=== PATIENT | male | born 2000 | race Caucasian/White ===

== ENCOUNTER 2018-02-08 20:27 | Inpatient (IN) | payer MEDICARE, MEDICAID ==
--- NOTE | 2018-02-08 22:32 | ED ---
Psych HPI - General Source: patient, family, RN notes reviewed, old records reviewed Mode of arrival: ambulatory <Evelin Bowers - Last Filed: 02/08/18 23:44> <Maximus Hunter - Last Filed: 02/12/18 08:21> - General Chief Complaint: Psychiatric Symptoms Stated Complaint: Mental Health Eval Time Seen by Provider: 02/08/18 21:21 - History of Present Illness Initial Comments: This is a 17-year-old male presents emergency department with mother and sister chief complaint of increased violent behavior. He was on clozaril for schizophrenia but has been off the medication for one month. Patient's mother reports that he has been acting out hearing voices and hitting himself because he feels like demons are on him. He states that he has multiple black figures to follow him. He only talked to his sister. Patient was brought in because he started to punch himself today. Patient has a long history of psychiatric illness. He has been on clozaril for a long time but was discussed continued abruptly after he missed some of his appointments with a psychiatrist Dr. Stewart. Patient will not relate any history himself. He will not talk to me. All history is obtained by the mother and sister. (Evelin Bowers) - Related Data Home Medications Medication Instructions Recorded Confirmed ALPRAZolam [Xanax] 1 mg PO Q4H PRN 02/08/18 02/08/18 QUEtiapine [SEROquel] 25 mg PO BID 02/08/18 02/08/18 Sertraline [Zoloft] 50 mg PO HS 02/08/18 02/08/18 Allergies Allergy/AdvReac Type Severity Reaction Status Date / Time No Known Allergies Allergy Verified 02/08/18 21:13 Review of Systems ROS Other: All systems not noted in ROS Statement are negative. <Evelin Bowers - Last Filed: 02/08/18 23:44> ROS Other: All systems not noted in ROS Statement are negative. <Maximus Hunter - Last Filed: 02/12/18 08:21> ROS Statement: Those systems with pertinent positive or pertinent negative responses have been documented in the HPI. Past Medical History Additional Past Medical History / Comment(s): skull fx from fall at age 1 History of Any Multi-Drug Resistant Organisms: None Reported Past Surgical History: No Surgical Hx Reported Past Psychological History: Schizoaffective Disorder, Schizophrenia Smoking Status: Current every day smoker Past Alcohol Use History: None Reported Past Drug Use History: None Reported <Evelin Bowers - Last Filed: 02/08/18 23:44> General Exam Limitations: no limitations General appearance: alert, in no apparent distress Head exam: Present: atraumatic, normocephalic, normal inspection Eye exam: Present: normal appearance, PERRL, EOMI. Absent: scleral icterus, conjunctival injection, periorbital swelling ENT exam: Present: normal exam, mucous membranes moist Neck exam: Present: normal inspection. Absent: tenderness, meningismus, lymphadenopathy Respiratory exam: Present: normal lung sounds bilaterally. Absent: respiratory distress, wheezes, rales, rhonchi, stridor Cardiovascular Exam: Present: regular rate, normal rhythm, normal heart sounds. Absent: systolic murmur, diastolic murmur, rubs, gallop, clicks GI/Abdominal exam: Present: soft, normal bowel sounds. Absent: distended, tenderness, guarding, rebound, rigid Extremities exam: Present: normal inspection, full ROM, normal capillary refill. Absent: tenderness, pedal edema, joint swelling, calf tenderness Back exam: Present: normal inspection Neurological exam: Present: alert, oriented X3, CN II-XII intact Psychiatric exam: Present: flat affect (Patient will not talk to me.). Absent: normal affect, normal mood Skin exam: Present: warm, dry, intact, normal color. Absent: rash <Evelin Bowers - Last Filed: 02/08/18 23:44> <Maximus Hunter - Last Filed: 02/12/18 08:21> - General Exam Comments Initial Comments: This is a 17-year-old male. No distress. (Evelin Bowers) Vital Signs 02/08/18 02/08/18 20:49 22:53 Temperature 97.3 F L Pulse Rate 112 H 97 Respiratory 20 18 Rate Blood Pressure 145/65 144/93 O2 Sat by Pulse 99 97 Oximetry Medical Decision Making <Evelin Bowers - Last Filed: 02/08/18 23:44> - Lab Data Result diagrams: 02/10/18 08:29 02/10/18 08:29 <Maximus Hunter - Last Filed: 02/12/18 08:21> - Medical Decision Making Patient is 17-year-old male who will not speak to me brought in by parents for acting out and hitting himself. He is schizophrenia. Patient has not been taking his medications per month that they really weren't abruptly discontinued. Patient has been seen hearing demons. All history is related from his sister. He will not talk to me. Flat affect. Patient was evaluated by EPS. Also note that the family is very concerned with having him receive an MRI of his brain to check his frontal lobe. Discusses could be further evaluated and after admission. Clinical certification was filled out by Dr. Castillo. Patient will be cleared medically and is going to be admitted at this time. ( Evelin Bowers) I saw this patient in conjunction with the physician senior it assistant. I performed independent history and physical exam. Agree with case management. (Maximus Hunter) Disposition Time of Disposition: 23:45 <Evelin Bowers - Last Filed: 02/08/18 23:44> <Maximus Hunter - Last Filed: 02/12/18 08:21> Clinical Impression: Schizophrenia Disposition: ADMITTED IP TO THIS [facility] Condition: Stable
[2018-02-09] MEDS ORDERED: ZIPRASIDONE 20 MG VIAL IM STA (00:16)
[2018-02-09] MEDS ORDERED: MAGNESIUM HYDROXIDE 2,400 MG/10 ML CUP PO PRN (00:33)
[2018-02-09] MEDS ORDERED: ACETAMINOPHEN TAB 325 MG TAB PO PRN (00:33)
[2018-02-09] MEDS ORDERED: ZIPRASIDONE 20 MG VIAL IM PRN (00:33)
[2018-02-09] MEDS ORDERED: MAG HYDROX/AL HYDROX/SIMETH 30 ML CUP PO PRN (00:33)
[2018-02-09 00:57] LABS: Appearance,Urine Cloudy (Clear); Bilirubin,Urine Negative (Negative); Blood,Urine Negative (Negative); Color,Urine Yellow; Glucose,Urine (UA) Negative (Negative); Ketones,Urine 1+ (Negative); Leukocyte Esterase,Urine Negative (Negative); Mucus,Urine Many /hpf; Nitrite,Urine Negative (Negative); PH, Urine 5.5 (5.0-8.0); Protein,Urine 1+ (Negative); RBC,Urine 4 /hpf (0-5); Specific Gravity,Urine 1.025 (1.001-1.035); Sperm,Urine Rare /hpf; WBC,Urine 3 /hpf (0-5)
[2018-02-09 01:07] LABS: Amphetamine Screen,Urine Not Detected (NotDetected); Benzodiazepines Screen,Urine Detected (NotDetected); Cocaine Screen,Urine Not Detected (NotDetected); Opiate Screen,Urine Not Detected (NotDetected); Phencyclidine Screen,Urine Not Detected (NotDetected)
[2018-02-09 01:08] LABS: Barbiturate Screen,Urine Not Detected (NotDetected); Methadone Screen, Urine Not Detected (NotDetected); Oxycodone Screen, Urine Not Detected (NotDetected); Tricyclic Antidepressant,Urine Detected (NotDetected); Urn Cannabinoid Scrn Not Detected (NotDetected)
--- NOTE | 2018-02-09 09:11 | P.HP ---
Psychiatric H&P - . H&P Date: 02/09/18 History & Physical: Allergies Allergy/AdvReac Type Severity Reaction Status Date / Time No Known Allergies Allergy Verified 02/08/18 21:13 Vital Signs Temp 98.1 F 02/09/18 03:48 Pulse 91 02/09/18 03:48 Resp 18 02/09/18 03:48 BP 130/66 02/09/18 03:48 Pulse Ox 97 02/08/18 22:53 Intake & Output 02/08/18 02/09/18 02/09/18 18:59 06:59 18:59 Weight 124.284 kg Laboratory Last Values Urine Color Yellow 02/09/18 00:39 Urine Appearance Cloudy (Clear) 02/09/18 00:39 Urine pH 5.5 (5.0-8.0) 02/09/18 00:39 Ur Specific Somers 1.025 (1.001-1.035) 02/09/18 00:39 Urine Protein 1+ (Negative) H 02/09/18 00:39 Urine Glucose (UA) Negative (Negative) 02/09/18 00:39 Urine Ketones 1+ (Negative) H 02/09/18 00:39 Urine Blood Negative (Negative) 02/09/18 00:39 Urine Nitrite Negative (Negative) 02/09/18 00:39 Urine Bilirubin Negative (Negative) 02/09/18 00:39 Urine Urobilinogen 2.0 mg/dL (<2.0) 02/09/18 00:39 Ur Leukocyte Esterase Negative (Negative) 02/09/18 00:39 Urine RBC 4 /hpf (0-5) 02/09/18 00:39 Urine WBC 3 /hpf (0-5) 02/09/18 00:39 Urine Mucus Many /hpf (None) H 02/09/18 00:39 Urine Sperm Rare /hpf (None) 02/09/18 00:39 Urine Opiates Screen Not Detected (NotDetected) 02/09/18 00:39 Ur Oxycodone Screen Not Detected (NotDetected) 02/09/18 00:39 Urine Methadone Screen Not Detected (NotDetected) 02/09/18 00:39 Ur Propoxyphene Screen Not Detected (NotDetected) 02/09/18 00:39 Ur Barbiturates Screen Not Detected (NotDetected) 02/09/18 00:39 U Tricyclic Antidepress Detected (NotDetected) H 02/09/18 00:39 Ur Phencyclidine Scrn Not Detected (NotDetected) 02/09/18 00:39 Ur Amphetamines Screen Not Detected (NotDetected) 02/09/18 00:39 U Methamphetamines Scrn Not Detected (NotDetected) 02/09/18 00:39 U Benzodiazepines Scrn Detected (NotDetected) H 02/09/18 00:39 Urine Cocaine Screen Not Detected (NotDetected) 02/09/18 00:39 U Marijuana (THC) Screen Not Detected (NotDetected) 02/09/18 00:39 02/09/18 08:53 Identification: Uziel Varma is a 17 years old single white male living in [facility]. He was admitted to [facility] under a petition stating that he is of psychiatric medications, has been hallucinating, getting violent, punching himself etc. History of present illness: Patient is extremely uncooperative, does not speak much and it is very hard to get any information from him. However he did agreed that he has been without his Clazuril since September 2017. Per records he missed his psychiatry appointments a few times and that is how he has been without clozapine. Apparently he has been seeing his family doctor who had prescribed him Zoloft and small dose of Seroquel in addition to when necessary benzodiazepines. Patient is very vague about hearing voices or seeing visions as noted in the admission note. He insists that he was not violent at home and has not been punching himself. He says that he is sleeping well and gets along well. He does not have any particular complaint. He insists that he does not have any suicidal or homicidal thoughts. Per admission note he was diagnosed with schizophrenia in the past and was getting clozapine. Previous psychiatric history/drug and alcohol abuse: Patient said he was never in a psychiatric hospital and was seeing Dr. Araujo for his outpatient treatment until about September 2017. Since then he has been seeing his family doctor. He denies abusing drugs and alcohol. His drug screening is positive for benzodiazepines and tricyclic antidepressants. Previous medical history: He is not ALLERGIC to any medication. He denies any physical problems. Social history: He said he has graduated from high school. Eventually he nodded his head when I asked him if he was in special school. He could not tell me if he had repeated any grades, if he had any problem with discipline or learning. He said he was not in any sports. He said he did not get into fights. He said he does not have any tenriism and does not go to hoahaoism. He said he has a girlfriend but does not have any children. He was not in the service. He denies any pending legal issues. He said he has a job but he is not able to tell me any details about the job. It is not clear what kind of health insurance he has and it is a white possible he has Medicare. Family history: He is not able to tell me if anybody has psychiatric or general medical problems in his family. Mental status examination: This is an obese ambulatory white male with fair hygiene. He has untrimmed de souza, long hair covering his face. He is very slow in moving around and I had to call him multiple times to come for the examination. He shows psychomotor retardation. But he does not show any posturing or bizarre behavior. He has long untrimmed fingernails. Has some old scars on his hands especially over his knuckles. His speech is very unspontaneous and very short and often in one word sentences or just by nodding his head or shaking his head. His mood is quite dull and affect is constricted in range. He denies hallucinations, delusional thinking, suicidal and homicidal ideas. But according to the information he was hallucinating and violent at home. He is not able to tell me the date, or name the presidents. He does not know where he is. He is able to spell house correctly and spelled it backwards as [facility]. He is not able to add 8 and 7 or 4 and 3. However he is able to say 5 pennies make a nickel. He cannot tell me how many nickels make a dollar. His insight is very poor and judgment appears to be grossly impaired as evidenced by his uncooperativeness and history of violent behavior at home, not taking his medication etc. Diagnostic impression: Schizophrenia per records F 20.9 Most likely unspecified intellectual disorder F 79 NKDA. Treatment plan: Patient will have physical examination and psychosocial evaluation. He will be closely observed for violent behavior. He will receive milieu therapy group therapy individual therapy occupational therapy recreational therapy and medication education. He refuses to take clozapine but he agreed to take Seroquel. In view of this I will start him on 50 mg of Seroquel twice a day and the dose will be adjusted depending on his needs. Discharge with outpatient follow-up. Treatment goals: He will be free of violent behavior. He will be able to provide good history. He will learn better coping skills. He will participate in all treatment modalities. Estimated length of stay: 3-7 days..
[2018-02-09] MEDS: QUEtiapine 50 MG TAB PO SCH ×2 (09:34→20:18)
[2018-02-09] MEDS: NICOTINE 14MG/24HR PATCH TRANSDERM SCH ×2 (09:34→09:39)
--- NOTE | 2018-02-09 11:41 | P.HPMEDMHU ---
History of Present Illness H&P Date: 02/09/18 Chief Complaint: hallucination and violent behavior 17 y/o male with hx of schizophrenia that was admitted with hallucinations. Reported to be playing in his stool. No chest pain, no fever. Review of Systems no chest pain, no fever, no palpitations all 10 systems reviewed were negative except what was mentioned in hpi. Past Medical History Additional Past Medical History / Comment(s): skull fx from fall at age 1 History of Any Multi-Drug Resistant Organisms: None Reported Past Surgical History: No Surgical Hx Reported Past Psychological History: Schizoaffective Disorder, Schizophrenia Smoking Status: Current every day smoker Past Alcohol Use History: None Reported Past Drug Use History: None Reported Medications and Allergies Home Medications Medication Instructions Recorded Confirmed Type ALPRAZolam [Xanax] 1 mg PO Q4H PRN 02/08/18 02/08/18 History QUEtiapine [SEROquel] 25 mg PO BID 02/08/18 02/08/18 History Sertraline [Zoloft] 50 mg PO HS 02/08/18 02/08/18 History Allergies Allergy/AdvReac Type Severity Reaction Status Date / Time No Known Allergies Allergy Verified 02/08/18 21:13 Physical Exam Vitals: Vital Signs Temp Pulse Pulse Resp BP BP Pulse Ox 02/09/18 03:48 98.1 F 91 18 130/66 02/08/18 22:53 97 18 144/93 97 02/08/18 20:49 97.3 F L 112 H 20 145/65 99 Intake and Output 02/08/18 02/09/18 02/09/18 22:59 06:59 14:59 Other: Weight 124.284 kg - Constitutional General appearance: no acute distress - EENT Eyes: PERRLA ENT: normal oropharynx, no thrush - Neck Neck: no lymphadenopathy, no rigidity Thyroid: bilateral: normal size - Respiratory Respiratory: right: CTA, negative: rales, rhonchi, wheezing - Cardiovascular Rhythm: regular Heart sounds: normal: S1, S2 - Gastrointestinal General gastrointestinal: normal bowel sounds, soft, no tenderness - Integumentary Integumentary: normal turgor - Neurologic Neurologic: CNII-XII intact - Musculoskeletal Musculoskeletal: gait normal - Psychiatric Psychiatric: A&O x's 3 Cranial Nerve Examination - Cranial Nerves Cranial Nerve II- Optic: Intact Cranial Nerve III- Oculomotor: Intact Cranial Nerve IV- Trochlear: Intact Cranial Nerve V- Trigeminal: Intact Cranial Nerve - Abducens: Intact Cranial Nerve VII- Facial: Intact Cranial Nerve VIII- Auditory: Intact Cranial Nerve IX- Glossopharyngeal: Intact Cranial Nerve X- Vagus: Intact Cranial Nerve XI- Accessory: Intact Cranial Nerve XII- Hypoglossal: Intact Results Labs: Abnormal Lab Results - Last 24 Hours (Table) 02/09/18 Range/Units 00:39 Urine Protein 1+ H (Negative) Urine Ketones 1+ H (Negative) Urine Mucus Many H (None) /hpf U Tricyclic Antidepress Detected H (NotDetected) U Benzodiazepines Scrn Detected H (NotDetected) Assessment and Plan (1) Schizophrenia Current Visit: Yes Status: Acute Code(s): F20.9 - SCHIZOPHRENIA, UNSPECIFIED SNOMED Code(s): 81857697 Plan: per psych
[2018-02-10] MEDS: QUEtiapine 50 MG TAB PO SCH (08:16)
[2018-02-10] MEDS: NICOTINE 14MG/24HR PATCH TRANSDERM SCH (08:21)
[2018-02-10 08:55] LABS: Basophils % (A) 0 %; Eosinophils % (A) 0 %; HCT 50.5 % (39.0-53.0); HGB 15.6 gm/dL (13.0-17.5); Lymphocytes # (A) 1.3 k/uL (1.0-4.8); Lymphocytes % (A) 26 %; MCH 27.7 pg (25.0-35.0); MCHC 30.8 g/dL (31.0-37.0); MCV 89.8 fL (80.0-100.0); Mean Platelet Volume 7.5; Monocytes # (A) 0.3 k/uL (0-1.0); Monocytes % (A) 6 %; Neutrophils # (A) 3.3 k/uL (1.3-7.7); Neutrophils % (A) 67 %; Platelet Count 228 k/uL (150-450); RBC 5.62 m/uL (4.30-5.90); RDW 13.5 % (11.5-15.5)
[2018-02-10 09:12] LABS: ALT 29 U/L (21-72); AST 16 U/L (17-59); Albumin 4.6 g/dL (3.5-5.0); Alkaline Phosphatase 80 U/L (38-126); Anion Gap 12 mmol/L; Blood Urea Nitrogen 13 mg/dL (9-20); Carbon Dioxide 27 mmol/L (22-30); Chloride 105 mmol/L (98-107); Cholesterol 188 mg/dL (<200); Glucose 102 mg/dL (74-99); HDL Cholesterol 33 mg/dL (40-60); LDL Cholesterol,Calculated 133 mg/dL (0-99); Potassium 4.4 mmol/L (3.5-5.1); Sodium 144 mmol/L (137-145); Total Bilirubin 0.5 mg/dL (0.2-1.3); Total Protein 7.5 g/dL (6.3-8.2); Triglycerides 110 mg/dL (<150)
--- NOTE | 2018-02-10 15:04 | P.PN ---
Progress Note - Text Progress Note Date: 02/10/18 Patient continues to stay by himself. He does not attend groups. Has poor hygiene. He takes his medications. He does not have any complaints. This is rather an obese ambulatory white male with poor hygiene. He has long hairs which cover his eyes. He has body odor. His room is littered with papers. He does not speak and only knots or shakes his head. But he answered when I called his name while he was in the bathroom. His mood is dull and affect is somewhat constricted in range. Hallucinations and delusional thinking was could not be assessed. He shook his head when I asked him if he has any suicidal thoughts. His memory concentration etc. could not be well evaluated. Plan: Increase Seroquel 200 mg twice a day since he does not have any adverse effects from 50 mg twice a day. He is encouraged to attend groups.
[2018-02-10 19:40] LABS: Hemoglobin A1C 4.7 % (4.0-6.0)
[2018-02-10] MEDS: QUEtiapine 100 MG TAB PO SCH (20:59)
[2018-02-11] MEDS: NICOTINE 14MG/24HR PATCH TRANSDERM SCH (09:39)
[2018-02-11] MEDS: QUEtiapine 100 MG TAB PO SCH (09:40)
--- NOTE | 2018-02-11 10:28 | P.PN ---
Progress Note - Text Interval history: The patient is found in the quiet room as he was sleeping in their voluntarily. The door was open. The patient followed me to an interview room. He seated calmly at the table looking down he makes no eye contact. He verbalizes very few responses and for the most part response to questions with a very fast head nod or shake. Only a very limited amount of information was obtained from the patient. I did speak with the patient's mother Kisha via phone for several minutes. She indicates that the patient had previously failed Abilify and they felt he was overly sedated with the Seroquel. They feel the patient did quite well with Clozaril before it was discontinued abruptly. Unfortunately the patient had missed 2 appointments with [facility] and his services were terminated. She states that the Clozaril was bringing him out of the psychosis and they were pleased with the result. He was going for weekly blood draws and those were all within normal limits per her report. He did experience a significant weight gain however. She feels they can mitigate that with better food choices and more closely monitoring him. She states that when he is acutely psychotic he "freaks out" he will hit himself in the head and feel tortured by these symptoms of psychosis. Mental status exam: The patient is an overweight male appearing his stated age. His hair is grown out so that it almost covers his eyes. He is dressed in his own clothing wearing a T-shirt and jeans. He is wearing no socks or shoes. He has no eye contact. No spontaneous speech. He verbalizes a few very brief answers that are nonspecific. He will demonstrate a very fast head shake or nod in response to some questions. There are several questions were he will provide no response. There are several questions were he will shake his head yes and no. He demonstrates no verbal or physical aggressiveness. He demonstrates no abnormal involuntary movements. Insight and judgment appear impaired. Cognitive questions were asked he did not respond. Plan: Despite the significant weight gain risk we are going to proceed with the Clozaril as his mother feels he did tremendously better with that medication. She feels the Seroquel at this point is overly sedating and it is still at a low dose given his diagnosis. She felt Abilify was a complete failure. She is concerned for his safety and insists that we use Clozaril to improve his symptoms at this time. We will initiate Clozaril 25 mg twice daily. Blood work was reviewed and is appropriate for us to initiate Clozaril. We will monitor him for safety and encourage his participation in the milieu. Vital signs reviewed. We will provide reality orientation when possible.
[2018-02-11] MEDS: cloZAPine 25 MG TAB PO SCH (21:26)
[2018-02-12] MEDS: cloZAPine 25 MG TAB PO SCH ×2 (08:05→21:07)
[2018-02-12] MEDS: NICOTINE 14MG/24HR PATCH TRANSDERM SCH (08:08)
--- NOTE | 2018-02-12 09:50 | P.PN ---
Progress Note - Text Interval history: The patient is found in his room he follows me to an interview room. Staff report the patient continues to isolate in his room although he did go down to breakfast. The patient provides no verbal responses to questions asked this morning and again only quickly nods his head. Mental status exam: The patient is an overweight male appearing his stated age. Eye contact is poor he seated in a chair sitting forward looking down at the floor. He only responds with quick shakes or nods of his head. Sometimes he begins to indicate a response before the question is answered. He initiates no interaction. He demonstrates no verbal or physical aggressiveness. There is no other type of psychomotor agitation. No evidence of any abnormal involuntary movements. Insight and judgment impaired. He indicates he is not experiencing any hallucinations and that he feels safe. He provides no response when asked why he is not verbally communicating during the session. Again there are questions he will not provide any response to. He maintains a flat affect. Plan: The patient will continue on the Clozaril we will increase the dose to 50 mg twice daily. Vital signs reviewed. He is encouraged to participate in the milieu. We will monitor him for safety. He requires continued psychiatric hospitalization due to acute symptoms of psychosis.
[2018-02-13] MEDS: cloZAPine 25 MG TAB PO SCH ×2 (08:51→21:18)
[2018-02-13] MEDS: NICOTINE 14MG/24HR PATCH TRANSDERM SCH (09:02)
--- NOTE | 2018-02-13 10:15 | P.PN ---
Progress Note - Text Interval history: The patient is found in the back hallway seated at a table eating. He follows me to an interview room. When asked how the patient is feeling he states "fine" he provides no other verbal responses to questions asked although several attempts were made to elicit further responses. Patient' s vital signs reviewed they are stable. He has been compliant with medication. He was observed earlier eating half of a banana he had not eaten his breakfast tray. He was later eating Cheetos and drinking juice boxes. Mental status exam: The patient is an overweight male appearing his stated age. He seated calmly in the chair without any movement. His hair is long and is combed over his eyes, his eyes are barely visible through his hair. Other than the initial verbal response he provides no other verbal responses. Only 2 approximate one third of the questions asked that he provide a response with a head nod. He demonstrates no verbal or physical aggressiveness he demonstrates no abnormal involuntary movements. His behavior is psychotic in appearance. Insight and judgment are impaired. He maintains a flat affect with no change in expression. Plan: The patient's remains psychotic. He continues to isolate. It appears he has been getting out of his room for meals however. We will continue his medication as written. He is in no acute distress vital signs reviewed. He requires continued psychiatric hospitalization due to the significant dysfunction his symptoms of psychosis causes.
[2018-02-14] MEDS: cloZAPine 25 MG TAB PO SCH (08:11)
[2018-02-14] MEDS: NICOTINE 14MG/24HR PATCH TRANSDERM SCH (08:12)
--- NOTE | 2018-02-14 10:00 | P.PN ---
Progress Note - Text Interval history: The patient's is found in his room he follows me to an interview room. The patient was reported to have sat in the hallway much of the day yesterday. He otherwise isolates in his room. He does attend meals and eats a limited portion of his meal. Again the patient provided 1 brief verbal response and no others despite several attempts to provoke a verbal response. Mental status exam: The patient is an overweight male appearing his stated age. He is dressed in jeans and a T-shirt. He has a disheveled appearance. His hair is longer and it is covering his eyes. He provides one verbal response "fine" when asked how he is. He otherwise provide some brief head nods that at times don't make sense. He is seated still in the chair he looks down at the floor he demonstrates no motion. Affect is flat. He demonstrates no verbal or physical aggressiveness he demonstrates no abnormal involuntary movements. He ambulates down the hallway without ataxia. Insight and judgment impaired. We presume he continues to experience symptoms of psychosis prompting his behavior on the mental health unit. Plan: The patient will continue on the Clozaril we will titrate the dose to 50 mg in the morning 75 mg at bedtime. His vital signs are within normal limits. He is encouraged to participate in the milieu we will monitor him for safety. He requires continued psychiatric hospitalization as his psychiatric symptoms are causing him significant dysfunction which could not be managed at home.
[2018-02-14] MEDS ORDERED: cloZAPine 25 MG TAB PO SCH (21:00)
[2018-02-15] MEDS ORDERED: cloZAPine 25 MG TAB PO SCH (09:00)
--- NOTE | 2018-02-15 10:31 | P.PN ---
Progress Note - Text Progress Note Date: 02/15/18 Patient was seen for a follow-up examination on behalf of Dr. Pan. Patient was seen in his room. He was sitting there all by himself. As you enter the room it has severity strong odor. Patient has paperback's papers etc. scattered all over the floor. He has not been attending groups and not eating all his meals regularly. He has been taking his medications regularly. Has not been violent or combative. But he does not attend to his basic needs, looks unkempt and disheveled. This is an obese ambulatory white male with poor hygiene. Has long hair covering his face. He does not make eye contact during examination. He answers questions either by saying yes or no or nodding/shaking his head. He does not make even one single sentence completely. His suicide, homicide risks could not be assessed formally. But he has not shown any suicide or homicide behavior. His cognition could not be assessed formally but he does not show any confused behavior. His CBC is within normal limits. Plan: Increase clozapine to 75 mg twice a day. Continue groups and other therapies.
[2018-02-15] MEDS: cloZAPine 25 MG TAB PO SCH (21:30)
[2018-02-16 09:42] LABS: Basophils % (A) 0 %; Eosinophils % (A) 0 %; HCT 46.3 % (39.0-53.0); HGB 15.2 gm/dL (13.0-17.5); Lymphocytes # (A) 1.4 k/uL (1.0-4.8); Lymphocytes % (A) 31 %; MCH 29.7 pg (25.0-35.0); MCHC 32.9 g/dL (31.0-37.0); MCV 90.1 fL (80.0-100.0); Mean Platelet Volume 7.1; Monocytes # (A) 0.3 k/uL (0-1.0); Monocytes % (A) 6 %; Neutrophils # (A) 2.6 k/uL (1.3-7.7); Neutrophils % (A) 60 %; Platelet Count 201 k/uL (150-450); RBC 5.13 m/uL (4.30-5.90); RDW 13.1 % (11.5-15.5); WBC 4.4 k/uL (4.0-11.0)
[2018-02-16] MEDS: cloZAPine 25 MG TAB PO SCH ×2 (09:57→20:51)
--- NOTE | 2018-02-17 00:24 | P.PN ---
Progress Note - Text Progress Note Date: 02/17/18 Patient was seen today. He does not take of his ADLS. He does not attend groups. He stays inside his room. He denies symptoms of janice, depression and psychosis. He reports sleeping and eating well. Patient is 18 year old male. He is obese with poor grooming and hygiene. His speech and thought process are limited. Maintains poor eye contact. He is a poor historian. His mood is reported as ok and affect constricted. He denies current auditory or visual halluciantions. He appears delusional and paranoid. He is alert and oriented to person only. He denies current suicidal or homicidal ideations. He judgement and insight are poor. Plan: CONTINUE clozapine to 75 mg twice a day. Monitor for symptoms
[2018-02-17] MEDS: cloZAPine 25 MG TAB PO SCH ×3 (10:16→22:06)
--- NOTE | 2018-02-17 12:22 | P.PN ---
Progress Note - Text Progress Note Date: 02/17/18 Patient was seen today. He doesnt talk. He responds to most of the questions with shrugging his shoulders. When asked if he has been taking medications he nods his head meaning he is taking his medications, but does not the reason why takes them. He nods his head no when asked about symptoms of depression, psychosis and janice. Per staff he stays inside his room most of the time but comes out to eat food. No anger, agitation or violent behaviors reported. Mental status exam Patient is 18 year old male. He was interviewed in the conference room. He sat quietly in the chair. He looks through the strands of the hair that are covering his face. He is dressed appropriately. He is hostile, gaurded and paranoid. His speech and thought process are limited. He nods his head no to most of the questions. He denies auditory or visual hallucinations. He denies suicidal or homicidal ideations. Plan: Continue clozapine to 75 mg twice a day. Encourage attendance and participation in groups and other therapies.
[2018-02-18 06:53] VITALS: RESP 16
--- NOTE | 2018-02-18 08:44 | P.PN ---
Progress Note - Text Progress Note Date: 02/18/18 Patient was seen for a routine follow-up examination. He is lying down in bed and did not go for breakfast stating that he is not hungry. He still has multiple brown paper bags and small pieces of papers scattered all around the floor. He does not have any particular complaint. He does not attend groups or interact with other patients or staff. He has been taking his medications, has not been violent combative or bizarre except about his hygiene. His CBC on 02/16/2018 is within normal limits. This is a white ambulatory male who is obese and has poor hygiene. He spoke couple of sentences today. He said he will be ready to go home in about a day or so. He also said he is not hungry and doesn't want to eat his breakfast. Otherwise no change in his appearance or behavior. He continues to have long hair over his eyes. He does not show any psychomotor agitation but is very slow in responding and moving around. He said he does not hear voices and denied delusional thinking. He also denies suicidal and homicidal ideas. Plan: Increase clozapine 200 mg twice a day. Continue milieu group and other therapies.
[2018-02-18] MEDS: cloZAPine 100 MG TAB PO SCH ×2 (09:38→21:16)
[2018-02-19] MEDS: cloZAPine 100 MG TAB PO SCH ×2 (09:20→21:09)
--- NOTE | 2018-02-19 12:51 | P.DS ---
Providers Date of admission: 02/08/18 23:44 Expected date of discharge: 02/19/18 Attending physician: Angelica Qureshi Consults: 02/09/18 00:33 Consult Physician Routine Consulting Provider: Bahman Duffy Consult Reason/Comments: follow up H & P Do you want consulting provider notified?: Yes Primary care physician: [facility] Course: Patient had his psychiatric examination physical examination and psychosocial evaluation. After psychiatric examination patient was started on Seroquel 50 mg twice a day for his reported diagnosis of schizophrenia. He took this medication regularly without any adverse effect. However he was seen by his attending psychiatrist and his Seroquel was changed to clozapine 25 mg twice a day since patient's mother apparently had reported to him that patient did extremely well on clozapine and she wanted patient to be put back on clozapine. It was gradually increased to the current dose of 100 mg twice a day. Patient started to improve, did not show any violent or combative behavior, started to attend to his basic needs etc. His parents were quite happy with his recovery and they felt that patient has reached his baseline and would like to take him home. In view of this it was agreed to discharge him. Condition on discharge: This is an obese ambulatory white male with fair hygiene. He does not socialize, does not show any psychomotor agitation or retardation. His speech is unspontaneous and very short. His mood is dull to euthymic and affect is rather constricted in range. He denies hallucinations and delusional thinking. He denies suicide and homicide thoughts. He is oriented to place and situation etc. he has difficulty with his cognitive functions. The social services manager reported that he was diagnosed with mental retardation when he was going to school. Patient and his parents were strongly advised and agreed for the patient to take his medication as prescribed, go to [facility] regularly, not to drive or operate machinery, not to drink alcohol or use drugs and to go to nearest ER if he gets agitated or become suicidal. Plan - Discharge Summary New Discharge Prescriptions: New Acetaminophen Tab [Tylenol] 650 mg PO Q4HR PRN tab PRN Reason: Pain/Discomfort cloZAPine [Clozaril] 100 mg PO BID 7 Days #14 tab Discontinued QUEtiapine [SEROquel] 25 mg PO BID ALPRAZolam [Xanax] 1 mg PO Q4H PRN PRN Reason: Anxiety Sertraline [Zoloft] 50 mg PO HS Discharge Medication List Acetaminophen Tab [Tylenol] 650 mg PO Q4HR PRN tab 02/19/18 [Rx] cloZAPine [Clozaril] 100 mg PO BID 7 Days #14 tab 02/19/18 [Rx] Follow up Appointment(s)/Referral(s): [facility] [Outside] - 1 Week (please complete walk-in intake within 48 hours of hospital discharge. Hours: - 1030-5 Wed, - 830-3) Joshua Winchester MD [Primary Care Provider] - 1-2 days
[2018-02-19 13:33] LABS: Basophils % (A) 0 %; Eosinophils % (A) 0 %; HCT 47.5 % (39.0-53.0); HGB 15.6 gm/dL (13.0-17.5); Lymphocytes # (A) 1.3 k/uL (1.0-4.8); Lymphocytes % (A) 29 %; MCH 29.1 pg (25.0-35.0); MCHC 32.7 g/dL (31.0-37.0); MCV 88.9 fL (80.0-100.0); Mean Platelet Volume 7.3; Monocytes # (A) 0.3 k/uL (0-1.0); Monocytes % (A) 6 %; Neutrophils # (A) 2.7 k/uL (1.3-7.7); Neutrophils % (A) 62 %; Platelet Count 201 k/uL (150-450); RBC 5.34 m/uL (4.30-5.90); RDW 13.2 % (11.5-15.5); WBC 4.3 k/uL (4.0-11.0)
[2018-02-19 21:08] VITALS: TEMP 98.1
[2018-02-19 23:18] VITALS: BP 142/96; PULSE 128
== END 2018-02-19 23:31 | disposition home or self-care (01) | DRG 885 ==
LOC: EC 20:27 → 3MHU 23:44 → EEVIPCON 23:44 → 3MHU 02-11 18:22
PROVIDERS: ADMIT Psychiatry & Neurology Psychiatry; ATTEND Psychiatry & Neurology Psychiatry
DX: F20.9 Schizophrenia, unspecified (principal); F79 Unspecified intellectual disabilities; E66.9 Obesity, unspecified; R45.6 Violent behavior; Z68.38 Body mass index [BMI] 38.0-38.9, adult; Z79.899 Other long term (current) drug therapy; F17.200 Nicotine dependence, unspecified, uncomplicated; Z87.81 Personal history of (healed) traumatic fracture
CPT/HCPCS: 80053; 80061; 80306; 81001; 82075; 83036; 84443; 85025; 96372; 99285